=== PATIENT | male | born 1955 | race Caucasian/White ===

== ENCOUNTER 2020-07-01 19:23 | Inpatient (IN) ==
[2020-07-01 20:04] LABS: Basophils # (auto) 0.01 K/uL (0-0.2); Basophils % (auto) 0.1 %; Eosinophils # (auto) 0.05 K/uL (0-0.5); Eosinophils % (auto) 0.5 %; Hematocrit (blood only) 36.5 % (42-52); Immature Granulocytes # (auto) 0.03 K/uL (0.00-0.02); Immature Granulocytes % (auto) 0.3 %; Lymphocytes # (auto) 2.81 K/uL (1.2-3.4); Lymphocytes % (auto) 26.1 %; Mean Corpuscular Hemoglobin 31.3 pg (25-34); Mean Corpuscular Hgb Conc 35.6 g/dL (32-36); Mean Platelet Volume 8.5 fL (7.4-10.4); Monocytes % (auto) 10.2 %; Neutrophils # (auto) 6.76 K/uL (1.4-6.5); Neutrophils % (auto) 62.8 %; Platelet Count 282 K/uL (130-400); RDW Coefficient of Variation 12.3 % (11.5-14.5); RDW Standard Deviation 39.5 fL (36.4-46.3); Red Blood Count 4.15 M/uL (4.7-6.1); White Blood Count 10.76 K/uL (4.8-10.8)
[2020-07-01 20:23] LABS: Alanine Aminotransferase 39 U/L (12-78); Albumin Level 4.1 gm/dl (3.4-5.0); Aspartate Aminotransferase 26 U/L (15-37); BUN Creatinine Ratio 10.8 (10-20); Blood Urea Nitrogen 11 mg/dl (7-18); Calcium 9.2 mg/dl (8.5-10.1); Carbon Dioxide 27 mmol/L (21-32); Chloride 91 mmol/L (98-107); Creatinine Clr Calc Pharmacy 72.4 ml/min; Est GFR (African American) 91.3; Est GFR (Non-African American) 78.8; Glucose 115 mg/dl (70-99); Potassium 4.1 mmol/L (3.5-5.1); Sodium 125 mmol/L (136-145)
[2020-07-01 20:26] LABS: Alkaline Phosphatase 89 U/L (45-117); Bilirubin,Total 0.7 mg/dl (0.2-1); Total Protein 8.1 gm/dl (6.4-8.2)
[2020-07-01] MEDS ORDERED: ALPRAZolam 0.25 MG TABLET PO STA (20:39)
[2020-07-01] MEDS ORDERED: SODIUM CHLORIDE 0.9% 1000ML 500 ML IV ONE (20:39)
[2020-07-01] MEDS ORDERED: ALPRAZolam 0.5 MG TABLET PO STA (20:41)
[2020-07-01 21:06] LABS: Creatine Kinase 134 U/L (39-308); Magnesium 2.2 mg/dl (1.8-2.4)
--- NOTE | 2020-07-01 21:58 | History & Physical Report ---
Date of Service July 01, 2020 Assessment & Plan (1) Acute hyponatremia: Pt is a 65yo gentleman known to the [facility] with a PMHx significant for HTN, HLD and ?anxiety who presented with significantly elevated BP and was found to be hyponatremic to 125. 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 -will fluid restrict and recheck Na with AM labs -continue to trend Na q6h HTN -Pt with known diagnosis -Has been worked up with a negative renal US in clinic, Sleep study could not be done due to insurance roadblocks -Pt keeps a close eye on BP at home, attempting to control with both exercise and medication currently -Hold home Lisinopril 25mg-HCTZ 12.5mg -PRN Lopressor 5mg IV with parameters Anxiety -Not an official diagnosis for this patient -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, 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 at home except his dog during the last week -Received a dose of xanax in the ED and was requesting a repeat dose -Given hydroxyzine, states he has been told he has a "paradoxical" reaction to meds like benadryl -in outpt setting after this hospitalization, consider workup for anxiety HLD -continue home atorvastatin 10mg daily FEN/GI: HH with fluid restriction CODE STATUS: Full code DVT prophylaxis: SCDs Dispo: med/surg with tele (2) Hypertension: (3) Hyperlipidemia: History of Present Illness Primary Care Provider: Zahira Perez MD Pt is a 65yo gentleman known to the [facility] with a PMHx significant for HTN, HLD and ?anxiety who presented with significantly elevated BP and was found to be hyponatremic to 125. Pt states that he had a hypotensive episode after running a week ago. Checked his blood pressure after he felt dizzy after a run and his systolic was in the 90s. He skipped his hypertensive medication the next day. has been checking his blood pressure daily since then and noticed a gradual increase to the hypertensive range with the highest noted the day of admission, systolic 170s. He presented to the ED. States he has no new stressors in his life except his dog this week as well. Fam hx: Mom was a heavy smoker, had 2 MIs and soon after a CABG. His dad is 97 with HTN. One of his siblings recently had an ablation. He has never smoked cigarettes, rarely uses alcohol. Ate marijuana "edibles" when he lived in [facility] 3 years ago to help with slepp but not since he has moved to [place]. Lives at home with his . 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 Allergies Allergy/AdvReac Type Severity Reaction Status Date / Time No Known Allergies Allergy Verified 07/01/20 21:14 Home Medications Home Medications Medication Instructions Recorded Confirmed Type atorvastatin [Lipitor] 10 mg PO QAM 07/21/19 07/01/20 History omega-3 fatty acids-vitamin E 1 cap PO BID 07/01/20 07/01/20 History Past Med/Surg History Medical History (Updated 07/03/20 @ 00:02 by Jaren Watkins) Acute hyponatremia Hyperlipidemia Hypertension No chronic problems Weakness Surgical History History of neck surgery Family History Other No significant family history Social History Smoking Status: Never smoker Hx Alcohol Use: No Hx Substance Use: No Preferred Language: [place] marital status: Current Living Situation: Spouse Current Living Situation Comment: lives in house with current occupational status: retired Feels Safe at Home: Yes Assistive Devices: Glasses Review of Systems Constitutional: + fatigue; no fever, no chills and no sweats Eyes: no worsening vision Ear, Nose, Mouth, Throat: no nasal congestion and no sore throat Respiratory: no cough and no dyspnea Cardiovascular: no chest pain, no dyspnea, no palpitations and no edema Gastrointestinal: no abdominal pain, no nausea, no vomiting, no constipation and no diarrhea/loose stools Genitourinary: no dysuria and no hematuria Musculoskeletal: no back pain Integumentary: no rash Neurologic: no dizziness, no headache(s) and no confusion Psychiatric: no confusion Physical Exam Physical Exam: General: Alert, oriented. No acute distress, laying in bed. Skin: No noted rashes or bruises Psych: Appropriate mood and affect Neuro: No gross deficits HEENT: NC/AT Chest: Nontender to palpation. CV: RRR, Normal s1, s2. No murmurs appreciated Resp: Breath sounds clear bilaterally, no increased effort of breathing. No crackles/rhonchi/rales. Abdomen: BS+. Soft, nontender, nondistended. No guarding. No organomegaly appreciated. Extremities: No edema in lower extremities bilaterally. Results & Data Results & Data ([facility]) Vital Signs (Past 12 Hours) Vital Signs Temp Pulse Pulse Resp BP BP Pulse Ox 07/01/20 20:26 93 H 20 179/106 H 98 07/01/20 19:30 37.0 C 92 H 20 183/93 H 99 Supervising Physician Co-Signing Physician Notes Attending addendum: I have physically seen this patient, have supervised the medical residents activities, and agree with the H&P unless as otherwise noted. Assessment and Plan: Hyponatremia- Sodium 125 upon admission, serum osmolality 263, urine osmolality 309. Fluid restriction 1500 cc. Hold HCTZ Sodium chloride 1 g p.o. twice daily Hypertension- Hold HCTZ. Lisinopril with hold parameters. Lopressor 5 mg IV every 4 hours as needed systolic blood pressure is 160 Hyperlipidemia- Continue atorvastatin 10 mg daily Remaining orders and notations as noted Resident Activity Tracking Resident Involvement: Resident Care Provided Care Provided: Adult Hospital Medicine (1) Hypertension Hypertension type: unspecified Qualified Code(s): I10 - Essential (primary) hypertension
[2020-07-01] MEDS ORDERED: METOPROLOL TARTRATE 1 MG/ML VIAL IV STA (22:04)
[2020-07-01] MEDS ORDERED: hydrOXYzine HCl 25 MG TAB PO STA (22:05)
[2020-07-01 22:17] LABS: Appearance Urine Clear (Clear); Bilirubin Urine Negative (Negative); Blood Urine Negative (Negative); Color Urine Yellow; Glucose Urine UA Negative (Negative); Ketones Urine Negative (Negative); Leukocyte Esterase Urine Negative (Negative); Nitrite Urine Negative (Negative); Protein Urine Negative (Negative); Specific Gravity Urine 1.009 (1.000-1.030); Urobilinogen Urine Negative (Negative); pH Urine 6.5 (4.5-7.5)
[2020-07-01 22:28] LABS: Creatine Kinase MB 1.1 ng/ml (0.5-3.6); Troponin I < 0.015 ng/ml (0-0.045)
[2020-07-01] MEDS ORDERED: ACETAMINOPHEN 500 MG TAB PO SCH (22:57)
[2020-07-01] MEDS ORDERED: METOPROLOL TARTRATE 1 MG/ML VIAL IV PRN (22:57)
[2020-07-01] MEDS ORDERED: ALUMINUM/MAGNESIUM/SIMETH (MAALOX MAX) 30 ML UDC PO PRN (22:57)
[2020-07-01] MEDS ORDERED: MELATONIN 3 MG TAB PO PRN (22:57)
[2020-07-01] MEDS ORDERED: hydrOXYzine HCl 25 MG TAB PO PRN (22:57)
--- NOTE | 2020-07-02 01:26 | Emergency Department Note ---
History of Present Illness General Chief complaint: Hypertension Stated complaint: hypertension Time Seen by Provider: 07/01/20 20:25 Source: patient Mode of arrival: ambulatory Limitations: no limitations History of Present Illness This patient comes in complaining of feeling generally weak and having high blood pressure. He said this started on Saturday. He went for a run and he does typically run but it was hotter than usual he felt woozy afterwards. No chest pain, he felt like it was just more effort to run. Afterwards he says blood pressure was 90/60 which is very low for him. Saturday he did not take his meds his blood pressure was 120/74. Saturday he felt okay Saturday said his blood pressure was 132/78 in the morning. The last couple days is been okay in the morning and high in the afternoon. He does have appointment to see Dr. Espinoza tomorrow. Around 3-4 o'clock this evening it was high at 145/82 so he took an extra blood pressure medicine. He takes lisinopril 20 mg/HCTZ 12.5 mg once a day she took an extra dose today. At 7:00 his blood pressure was 176/92 so he came here. He has no chest pain or heart racing. No lightheadedness or dizziness. No focal numbness or weakness. No headache neck pain or stiffness. No abdominal pain. No blood or melena stool. No known exposure to Covid. No fever or chills or cough. He feels he has been keeping up with his fluids Home Medications Home Medications Medication Instructions Recorded Confirmed Type atorvastatin [Lipitor] 10 mg PO QAM 07/21/19 07/01/20 History lisinopril-hydrochlorothiazide 1 tab PO QAM 07/21/19 07/01/20 History omega-3 fatty acids-vitamin E 1 cap PO BID 07/01/20 07/01/20 History [Fish Oil] Allergies Allergy/AdvReac Type Severity Reaction Status Date / Time No Known Allergies Allergy Verified 07/01/20 21:14 Past Med/Surg History Medical History (Updated 07/02/20 @ 01:26 by Gary Dick MD) Hyperlipidemia Hypertension No chronic problems Surgical History History of neck surgery Family History Other No significant family history Social History Smoking Status: Never smoker Hx Alcohol Use: No Hx Substance Use: No Preferred Language: Ma[place] marital status: Current Living Situation: Spouse Current Living Situation Comment: lives in house with current occupational status: retired Feels Safe at Home: Yes Safety Concerns: Feels Safe At This Time Assistive Devices: None Review of Systems A total of 10 systems reviewed and were otherwise negative Physical Exam Vital Signs Vital Signs - 24 hr 07/01/20 19:30 07/01/20 20:26 Temperature 37.0 C Temperature Source Oral Pulse Rate 92 H Pulse Rate [Left Finger] 93 H Respiratory Rate 20 20 Respiratory Effort / Characteristics Non-Labored Spontaneous Respiratory Depth Normal Blood Pressure 183/93 H Blood Pressure [Right Arm] 179/106 H Blood Pressure Mean 123 Blood Pressure Mean [Right Arm] 130 Pulse Oximetry 99 98 Oxygen Delivery Method Room Air Sepsis New/Unexplained Change in Mental Status N/A Sepsis Action Taken by Nursing No Action Required General: Well developed well nourished not ill-appearing middle-age male who appears in no acute distress, breathing comfortably on room air. Normal speech HEENT: Normal cephalic atraumatic. Pupils are equal round and reactive to light. Extraocular movements are intact. Oropharynx is pink with moist mucous membranes. No swelling of the mouth lips or tongue. Neck: Supple with a midline trachea. No meningeal signs or stiffness, no JVD or bruits. No Stridor. Chest: Clear to auscultation bilaterally. No wheezes or rhonchi. No increased work of breathing. Heart: Regular rate and rhythm without murmurs or gallops. Abdomen: Soft nontender, nondistended without rebound guarding or rigidity. Extremities: No cyanosis clubbing or edema. No calf tenderness or assymetry Spine/Back. Non tender to palpation. No CVA tenderness Skin: Good turgor without rashes. Neurologic exam: Cranial nerves two through 12 are intact. Motor and sensation are intact and symmetrical throughout. No tremor. Course Administered Medications Acetaminophen (Acetaminophen 500 Mg Tab) 1,000 mg PO Q8H [id number] Stop: 07/31/20 22:56 Last Admin: 07/01/20 23:49 Dose: Not Given Documented by: [id number] Discontinued Medications Alprazolam (Alprazolam 0.5 Mg Tablet) 0.25 mg PO NOW STA Stop: 07/01/20 20:42 Last Admin: 07/01/20 20:58 Dose: 0.25 mg Documented by: [id number] Hydroxyzine HCl (Hydroxyzine Hcl 25 Mg Tab) 50 mg PO NOW STA Stop: 07/01/20 22:06 Last Admin: 07/01/20 22:26 Dose: 50 mg Documented by: [id number] Sodium Chloride (Nss 1000ml) 500 mls @ 999 mls/hr IV .Q31M ONE Stop: 07/01/20 21:09 Last Infusion: 07/01/20 21:28 Dose: 0 mls/hr Documented by: [id number] Admin: 07/01/20 20:58 Dose: 999 mls/hr Documented by: [id number] Metoprolol Tartrate (Metoprolol Tartrate 1 Mg/Ml Vial) 5 mg IV NOW STA Stop: 07/01/20 22:05 Last Admin: 07/01/20 22:26 Dose: Not Given Documented by: [id number] Medical Decision Making Differential Diagnosis Hypertension, cardiac disease, electrolyte or metabolic abnormality, Covid, dehydration Medical Records Attestation: I reviewed the patient's medical records. Home Medications Current Medication List: was personally reviewed by me Laboratory Data Attestation: I reviewed the patient's lab results. Result diagrams: 07/01/20 19:48 07/01/20 19:48 Lab Results 07/01/20 07/01/20 07/01/20 Range/Units 19:48 19:48 19:48 WBC 10.76 (4.8-10.8) K/uL RBC 4.15 L (4.7-6.1) M/uL Hgb 13.0 L (14.0-18.0) g/dL Hct 36.5 L (42-52) % MCV 88.0 (80-100) fL MCH 31.3 (25-34) pg MCHC 35.6 (32-36) g/dL RDW Std Deviation 39.5 (36.4-46.3) fL RDW Coeff of Liu 12.3 (11.5-14.5) % Plt Count 282 (130-400) K/uL MPV 8.5 (7.4-10.4) fL Immature Gran % (Auto) 0.3 % Neut % (Auto) 62.8 % Lymph % (Auto) 26.1 % [place] % (Auto) 10.2 % Eos % (Auto) 0.5 % Baso % (Auto) 0.1 % Neut # (Auto) 6.76 H (1.4-6.5) K/uL Lymph # (Auto) 2.81 (1.2-3.4) K/uL [place] # (Auto) 1.10 H (0.11-0.59) K/uL Eos # (Auto) 0.05 (0-0.5) K/uL Baso # (Auto) 0.01 (0-0.2) K/uL Immature Gran # (Auto) 0.03 H (0.00-0.02) K/uL Sodium 125 L (136-145) mmol/L Potassium 4.1 (3.5-5.1) mmol/L Chloride 91 L (98-107) mmol/L Carbon Dioxide 27 (21-32) mmol/L Anion Gap 7.0 (3-11) BUN 11 (7-18) mg/dl Creatinine 1.01 (0.6-1.4) mg/dl Est Cr Clr Drug Dosing 72.4 ml/min Est GFR ( Amer) 91.3 Est GFR (Non-Af Amer) 78.8 BUN/Creatinine Ratio 10.8 (10-20) Glucose 115 H (70-99) mg/dl Osmolality 263 L (280-300) mOsm/kg Calcium 9.2 (8.5-10.1) mg/dl Magnesium 2.2 (1.8-2.4) mg/dl Total Bilirubin 0.7 (0.2-1) mg/dl AST 26 (15-37) U/L ALT 39 (12-78) U/L Alkaline Phosphatase 89 (45-117) U/L Total Creatine Kinase 134 (39-308) U/L CK-MB (CK-2) 1.1 (0.5-3.6) ng/ml CK/CKMB % Calc 0.8 (0-3.0) Troponin I < 0.015 (0-0.045) ng/ml Total Protein 8.1 (6.4-8.2) gm/dl Albumin 4.1 (3.4-5.0) gm/dl Globulin 4.0 (2.5-4.0) gm/dl Albumin/Globulin Ratio 1.0 (0.9-2) TSH 1.390 (0.300-4.500) uIu/ml ECG Data Attestation: I personally reviewed and interpreted this ECG as follows: Indication: + weakness and + other (Hypertention) Rate (beats per minute): 95 Rhythm: + normal sinus ECG Intervals/blocks: + Normal QRS, + Normal QT and + Normal MA ECG [place]: + Normal ECG ST segments: + Normal ST segments ECG Findings: no PACs and no PVCs Comparison ECG Date: from (07/21/19) Change: no significant change MDM Narrative This patient comes in after having hypertension and generalized feeling weak. His blood pressure was moderately elevated however he has no neurologic deficits chest pain or anything to suggest a acute hypertensive emergency. His EKG does not show any ischemic changes or ectopy. He was placed on a monitor worker and was in normal sinus rhythm. Blood work was obtained and he has significantly low sodium at 125. He was given IV fluid bolus and I do think needs to be admitted/observed for his low sodium he has been feeling kind of generally off and weak lately and that is likely causing this. This likely from his HCTZ. He has no elevation of his troponin discussed cardiac disease and no elevation of CK-MB to see has rhabdomyolysis. I did consult Dr. Small who saw the patient in ER for these measures. Continuous cardiac monitoringorder was placed in the EMR. The patient was noted to be in normal sinus rhythm with a rate of 80. Impression & Plan Acute hyponatremia, Hypertension, Weakness Discharge Plan Visit Data Chief Complaint: Hypertension Stated Complaint: hypertension ED Provider: Gary Dick Discharge Problem: Acute hyponatremia, Hypertension, Weakness Patient Disposition: Admitted As Inpatient Discharge Instructions Interventions: ED Discharge Assessment Last Done: 07/01/20 22:33 Discharge Problem: Hypertension Qualifiers: Hypertension type: unspecified Qualified Code(s): I10 - Essential (primary) hypertension
[2020-07-02] MEDS ORDERED: ACETAMINOPHEN 500 MG TAB PO PRN (05:39)
[2020-07-02 06:04] LABS: Basophils # (auto) 0.01 K/uL (0-0.2); Basophils % (auto) 0.1 %; Eosinophils # (auto) 0.08 K/uL (0-0.5); Eosinophils % (auto) 0.9 %; Hematocrit (blood only) 34.6 % (42-52); Hemoglobin 12.5 g/dL (14.0-18.0); Immature Granulocytes # (auto) 0.02 K/uL (0.00-0.02); Immature Granulocytes % (auto) 0.2 %; Lymphocytes # (auto) 2.93 K/uL (1.2-3.4); Lymphocytes % (auto) 32.4 %; Mean Corpuscular Hemoglobin 31.7 pg (25-34); Mean Corpuscular Volume 87.8 fL (80-100); Mean Platelet Volume 8.2 fL (7.4-10.4); Monocytes # (auto) 1.09 K/uL (0.11-0.59); Neutrophils # (auto) 4.92 K/uL (1.4-6.5); Neutrophils % (auto) 54.4 %; Platelet Count 248 K/uL (130-400); RDW Coefficient of Variation 12.2 % (11.5-14.5); RDW Standard Deviation 39.6 fL (36.4-46.3); Red Blood Count 3.94 M/uL (4.7-6.1); White Blood Count 9.05 K/uL (4.8-10.8)
[2020-07-02 06:08] LABS: Mean Corpuscular Hgb Conc 36.1 g/dL (32-36)
[2020-07-02 06:21] LABS: BUN Creatinine Ratio 9.5 (10-20); Calcium 8.7 mg/dl (8.5-10.1); Creatinine Clr Calc Pharmacy 82.2 ml/min; Est GFR (African American) 102.2; Est GFR (Non-African American) 88.2; Potassium 3.7 mmol/L (3.5-5.1)
[2020-07-02 08:22] LABS: BUN Creatinine Ratio 10.1 (10-20); Calcium 8.8 mg/dl (8.5-10.1); Est GFR (Non-African American) 90.6; Potassium 3.6 mmol/L (3.5-5.1)
[2020-07-02] MEDS ORDERED: ATORVASTATIN 10 MG TAB PO SCH (09:00)
--- NOTE | 2020-07-02 12:05 | Hospitalist Progress Note ---
Date of Service July 02, 2020 Assessment & Plan Admission and Anticipated Discharge Date Admission Date: July 01, 2020 Results & Data Results & Data ([facility]) Vital Signs (Past 12 Hours) Vital Signs Temp Pulse Pulse Resp BP Pulse Ox 07/02/20 07:22 36 C L 72 16 120/75 97 07/02/20 07:19 65 07/02/20 04:09 36.5 C 75 18 135/85 97 07/02/20 01:46 70
[2020-07-02 12:08] LABS: BUN Creatinine Ratio 10.9 (10-20); Calcium 8.8 mg/dl (8.5-10.1); Creatinine Clr Calc Pharmacy 80.4 ml/min; Est GFR (African American) 99.6; Est GFR (Non-African American) 85.9
[2020-07-02 15:46] VITALS: TEMP 98.6; O2SAT 94
--- NOTE | 2020-07-02 16:03 | Discharge Summary ---
Date of Service July 02, 2020 Admission HPI Per Admitting Provider Pt is a 65yo gentleman known to the [facility] with a PMHx significant for HTN, HLD and ?anxiety who presented with significantly elevated BP and was found to be hyponatremic to 125. Pt states that he had a hypotensive episode after running a week ago. Checked his blood pressure after he felt dizzy after a run and his systolic was in the 90s. He skipped his hypertensive medication the next day. has been checking his blood pressure daily since then and noticed a gradual increase to the hypertensive range with the highest noted the day of admission, systolic 170s. He presented to the ED. States he has no new stressors in his life except his dog this week as well. Fam hx: Mom was a heavy smoker, had 2 MIs and soon after a CABG. His dad is 97 with HTN. One of his siblings recently had an ablation. He has never smoked cigarettes, rarely uses alcohol. Ate marijuana "edibles" when he lived in [facility] 3 years ago to help with slepp but not since he has moved to [place]. Lives at home with his . 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 Admission Exam Per Admitting Provider General: Alert, oriented. No acute distress, laying in bed. Skin: No noted rashes or bruises Psych: Appropriate mood and affect Neuro: No gross deficits HEENT: NC/AT Chest: Nontender to palpation. CV: RRR, Normal s1, s2. No murmurs appreciated Resp: Breath sounds clear bilaterally, no increased effort of breathing. No crackles/rhonchi/rales. Abdomen: BS+. Soft, nontender, nondistended. No guarding. No organomegaly apprec iated. Extremities: No edema in lower extremities bilaterally. Principal Diagnosis hyponatremia Discharge Exam Constitutional WD/WN, vitals as above no acute distress Respiratory normal respiratory effort, lungs clear to auscultation Cardiovascular RRR, no murmur, no edema Heart Sounds: normal S1 and normal S2; no gallop, no murmur and no cardiac rub Gastrointestinal (Abdomen) normal bowel sounds, soft, nontender, no hepatosplenomegaly Musculoskeletal no cyanosis or clubbing, extremities motor strength 5/5 Skin no rashes, warm and dry Psychiatric A+Ox3, euthymic affect Discharge Data Allergies Allergy/AdvReac Type Severity Reaction Status Date / Time No Known Allergies Allergy Verified 07/01/20 21:14 Consultations 07/01/20 20:48 ED Decision to Admit Stat Hospital Course (1) Acute hyponatremia: Pt is a 65yo gentleman known to the [facility] with a PMHx signif icant for HTN, HLD and ?anxiety who presented with significantly elevated BP and was found to be hyponatremic to 125. 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 - Pt was fluid restricted yet his Na remained low at 127 on discharge - Probable that hyponatremia is due to a combination of excess hydration as well as some salt wasting from the HCTZ - BPs trended to normal without treatment during admission - Home meds held as patient has been having lower BPs with symptoms including fatigue and lightheadedness lately on them - Outpt BMP ordered to monitor hyponatremia - Will follow up this week in [facility] clinic HTN -Pt with known diagnosis -Has been worked up with a negative renal US in clinic, Sleep study could not be done due to insurance roadblocks -Pt keeps a close eye on BP at home, attempting to control with both exercise and medication currently -Hold home Lisinopril 25mg-HCTZ 12.5mg - Monitor BP at home off meds--will follow up as outpt as above Anxiety -Not an official diagnosis for this patient -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, 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 at home except his dog during the last week -Received a dose of xanax in the ED and was requesting a repeat dose -Given hydroxyzine, states he has been told he has a "paradoxical" reaction to meds like benadryl -in outpt setting after this hospitalization, consider workup for anxiety HLD -continued home atorvastatin 10mg daily FEN/GI: HH with fluid restriction CODE STATUS: Full code Dispo: Home (2) Hypertension: (3) Hyperlipidemia: Total Time Total Time Spent Total Time Spent (In Minutes): >30 Discharge Plan Discharge Items Patient Disposition: Home - Self-Care Reason For Visit: HYPONATREMIA Discharge Diagnosis: Hyponatremia Activity: Resume your previous activity Non-emergency contact: Primary Care Provider Call non-emergency contact if: you have any medication questions and your symptoms worsen Follow-up/Referrals: Zahira Perez MD [Primary Care Provider] - Chidi Grigsby MD [Resident] - Diet: Regular Addtl Attending Provider Instructions: You came to [facility] due to high blood pressure readings at home. In the ED your BP was found to be 183/93 and you were also found to have low sodium levels. You were admitted for further evaluation, at which point your home BP meds were stopped and you were started on medications as needed for severe BP elevations. During your admission you did not require any medication for severe elevations, and your blood pressure trended down to normal without treatment. With that in mind, we discussed that it would be a good idea to watch your BP for the next few days while you follow up in the clinic. As we discussed, your sodium levels are likely due to a combination of some degree of dilution due to excess fluid consumption and some salt wasting cause by the hydrochlorothiazide. As your medications will be stopped, that cause will be eliminated. The dilution will be managed by trying to keep your fluid consumption to about 60 oz per day or less until you're reevaluated in the office. Additionally, to try and bring up your sodium levels in the next few days, you may want to slightly increase your sodium intake. You should present to the outpatient lab to get blood drawn on Saturday for evaluation of your sodium level. While you await outpatient follow-up, it is a good idea to check your BP at random times to see how you are doing off the medication. Do keep in mind that if you are not having symptoms, a few high readings will not be of immediate concern and can be discussed at follow-up. Pending Studies at Discharge: No Stand-Alone Forms: My [employer], Smoking Cessation Medications and DC Order Prescriptions: Continued omega-3 fatty acids-vitamin E 1,000 mg Capsule 1 cap PO BID RF: 0 atorvastatin [Lipitor] 10 mg Tablet 10 mg PO QAM RF: 0 Discontinued lisinopril-hydrochlorothiazide 20-12.5 mg Tablet 1 tab PO QAM RF: 0 Discharge Orders: Discharge Order (Routine); Ordered 07/02/20 Ordered By: Chidi Grigsby Admission Data Admit Date/Time: 07/01/20 21:56 Attending Provider: Reynold Manning Admit Provider: Michelle Hoskins Primary Care Provider: Zahira Perez Other Providers: Gutierrez Tavera Supervising Physician Co-Signing Physician Notes I personally examined the patient and verified all beltran points of history and exam, discussed case, and agree with decision making with Dr Smith feeling better overall, just "hungover" feeling. notes that BP at home has been 90/50 - 120/70 ranges for a long time, even when he got dx w HTN he was ~150/90 range. also ntoes that when he's running more is BP really responds well to being a runner. vitals noted nad heent nc at mmm breathing unlabored no accessory muscles good effort skin no rashes no pallor or icterus neuro cn2-12 grossly intact gross motor/sensory intact hyponatremia - suspect polydipsia from drinking fluids to try to raise BP as well as a degree of low solute state from Na wasting from HCTZ. totally asymptomatic, and with Na 128, essentially zero risk for HORSERADISH GRINDER damage since he is only 7 points from normal - ie can't correct too fast at this point given his rate of Na change and current level compared to lower limits of normal --> safe for home. BMP saturday, fluid restrict to <2L until labs - then ongoing or not based on levels. mildly liberalize Na intake today / tomorrow as well. stop HCTZ -- and since he's a distance runner and salt wastes a lot by recreation - a o probably would be better served w different BP meds (if any are needed, see below) in the future. he expressed good understanding and comfort level w this plan HTN - spike almost certainly adrenergic - he is quite reliable, checks BP frequently, and relates a long track record of BP readings - of which his admitting BP is an extreme outlier. he also notes a degree of white coat effect - all of which makes me suspect his BP is suscepitble to lability in an adrenergic state (stress, pain, etc). as above noted, BP seems to be quite responsive to running - and he notes that while he was laid up due to a back surgery earlier this year, he has been getting back to running more recently. BP low-end recently as well - and none of his home readings were high. suspect at this point with genetics/fitness/lifestyle he probably has a tendency to be essential HTN but when he is running/taking care of himself it's easier to control or controlled enough meds are of marginal need. for now - hold meds entirely and monitor closely. as above noted, given salt wasting of endurance running probably indefinite dc of HCTZ. if BP runs high enough to warrant treatment at this time - probably resume and/or work to max of lisinopril before looking at needing a second med. however, if he stays <140/90 and definitely if he stays under 130/85 on average, it would be questionable if he would war rant treatment currently. again - depending on lifestyle seems that he has a tendency to essential HTN but has ups/downs of when he might truly need treatment vs just close monitoring. outlined HTN urgency - low probability event - and outlined sx to watch for. close and ongoing PCP f/u in this regard. otherwise as above Resident Activity Tracking Resident Involvement: Resident Care Provided Care Provided: Adult Hospital Medicine
[2020-07-02 16:08] LABS: BUN Creatinine Ratio 12.6 (10-20); Calcium 8.6 mg/dl (8.5-10.1); Creatinine Clr Calc Pharmacy 68.1 ml/min; Est GFR (African American) 81.5; Est GFR (Non-African American) 70.3; Potassium 3.9 mmol/L (3.5-5.1)
--- NOTE | 2020-07-02 17:00 | Billing Data ---
Date of Service July 02, 2020 Coding Level of Care Code D/C Day Management >30 mins
[2020-07-02 17:07] VITALS: BP 124/81; PULSE 74
--- NOTE | 2020-07-03 02:28 | Billing Data ---
Date of Service July 03, 2020 Coding Level of Care Code 66524 OBS Care - Level 3
--- NOTE | 2020-07-03 06:25 | Electrocardiogram Report ---
Test Reason : Blood Pressure : / mmHG Vent. Rate : 095 BPM Atrial Rate : 095 BPM P-R Int : 176 ms QRS Dur : 096 ms QT Int : 360 ms P-R-T Axes : 050 015 047 degrees QTc Int : 452 ms Normal sinus rhythm Normal ECG When compared with ECG of 21-JUL-2019 04:55, No significant change was found Confirmed by Salinas Herron ([id number]) on 07/03/2020 6:25:07 AM Referred By: REFERRED SELF Confirmed By:Salinas Herron
== END 2020-07-02 18:00 | disposition home or self-care (01) | DRG 641 ==
LOC: ED 19:23 → SUATTDRO 21:56 → 2N 21:56